=== PATIENT | female | born 1950 | race Caucasian/White ===

== ENCOUNTER 2020-05-26 13:05 | Emergency (ER) | payer MEDICARE, OTHER ==
[~2020-05-26] VITALS: Ht 157.5 cm; Wt 71.4 kg
[2020-05-26 13:15] VITALS: BP 176/86
[2020-05-26] MEDS ORDERED: HYDROcodone/APAP 7.5/325MG 1 TAB TABLET PO ONE (13:30)
[2020-05-26] MEDS ORDERED: MENT118G TP (14:01)
[2020-05-26] MEDS ORDERED: LIDO1ADH TP (14:01)
--- NOTE | 2020-05-26 14:01 | PHYS DOC ---
Past History Past Medical History: Diabetes, Hypertension, Hypothyroid Past Surgical History: Hysterectomy, Tonsillectomy, Other Additional Past Surgical Histo: MANDIBULAR SURGERY Alcohol Use: Rarely General Adult EDM: Chief Complaint: RIB PAIN HPI: HPI: 69-year-old female past medical history significant for diabetes, hypertension hypothyroidism, presents to the ED immediately after injury to her chest wall, complaints of left sided anterior rib pain that occurred just prior to arrival stating she feels as if something is moving. Patient states she works at a [employer] day[employer] when she tripped over a chair and fell forward, hitting her chest on a wooden shelf. Patient reports pain is worsened with any type of upper extremity movement (raising her arms), cough or twisting of her torso. Patient reports she is not on any anticoagulants. Did not her head or lose consciousness. Denies any alcohol or drug use. Patient reports she is physically active, has a certified athletic trainer and exercises for 1hr, 3x/wk. Declines any "pill" pain medications in the ED and asks if epsom salt baths are okay. Denies any preceding symptoms including dizziness, chest pain, lightheadedness or difficulties breathing. Review of Systems: Review of Systems: Constitutional: Denies fever or chills Eyes: Denies change in visual acuity HENT: Denies nasal congestion or sore throat Respiratory: Denies cough or hemoptysis Cardiovascular: Denies syncope or edema GI: Denies abdominal pain, nausea, vomiting, bloody stools or diarrhea : Denies dysuria Musculoskeletal: Denies back pain or joint pain Integument: Denies rash Neurologic: Denies headache, focal weakness or sensory changes or midline neck pain or neck stiffness Endocrine: Denies polyuria or polydipsia Lymphatic: Denies swollen glands Psychiatric: Denies depression or anxiety Heart Score: Risk Factors: Risk Factors: DM, Current or recent (<one month) smoker, HTN, HLP, family history of CAD, obesity. Risk Scores: Score 0 - 3: 2.5% MACE over next 6 weeks - Discharge Home Score 4 - 6: 20.3% MACE over next 6 weeks - Admit for Clinical Observation Score 7 - 10: 72.7% MACE over next 6 weeks - Early Invasive Strategies Current Medications: Current Meds: Current Medications Medications (Trade) Dose Ordered Sig/Dusty Start Time Stop Time Status Last Admin Dose Admin Acetaminophen/ Hydrocodone Bitart (Lortab 7.5/325) 1 tab 1X ONCE 05/26/20 13:30 05/26/20 13:31 DC Allergies: Allergies: Allergies Coded Allergies Type Severity Reaction Last Updated Verified No Known Drug Allergies 05/26/20 No Physical Exam: PE: Constitutional: Well developed, well nourished, no acute distress, non-toxic appearance. [] HENT: Normocephalic, atraumatic, bilateral external ears normal, Eyes: PERRLA, EOMI, conjunctiva normal, no discharge. [] Neck: Normal range of motion, no tenderness, supple, no stridor. [] Cardiovascular:Heart rate regular rhythm, no murmur [] Lungs & Thorax: Bilateral breath sounds clear to auscultation []+anterior thoracic left ttp - just under left breast, no bruising or palpable deformity, no crepitus Abdomen: Bowel sounds normal, soft, no tenderness, no masses, no pulsatile masses. [] Skin: Warm, dry, no erythema, no rash. [] Back: No tenderness, Extremities: No tenderness, no cyanosis, no clubbing, ROM intact, no edema. [] Neurologic: Alert and oriented X 3, normal motor function, normal sensory function, no focal deficits noted. [] Psychologic: Affect normal, judgement normal, mood normal. [] Current Patient Data: Vital Signs: Vital Signs Date Time Temp Pulse Resp B/P (MAP) Pulse Ox O2 Delivery O2 Flow Rate FiO2 05/26/20 13:15 98.1 77 20 176/86 (116) 97 Room Air EKG: EKG: [] Radiology/Procedures: Radiology/Procedures: []IMAGING REPORT Signed PATIENT: JOELLE LEDESMA ACCOUNT: [id number] : 1950 LOCATION: ER AGE: 69 SEX: F EXAM STATUS: REG ER ORD. PHYSICIAN: MARVIN NASSAR DO REASON: fall left anterior lower rib pain PROCEDURE: CT CHEST WO CONTRAST CT CHEST WO CONTRAST INDICATION: fall left anterior lower rib pain COMPARISON STUDY: None. TECHNIQUE: Unenhanced axial images were obtained through the lungs and upper abdomen. Coronal and sagittal multiplanar reconstructions were also obtained. PQRS compliance statement: One or more of the following individualized dose reduction techniques were utilized for this examination: 1. Automated exposure control 2. Adjustment of the mA and/or kV according to patient size 3. Use of iterative reconstruction technique FINDINGS: Lungs and Airways: No pulmonary mass or consolidation. Normal central airways. Pleura: The pleural spaces are normal. Heart and Mediastinum: The visualized thyroid gland is normal in size and attenuation. No axillary or supraclavicular lymphadenopathy. No mediastinal, hilar or retrocrural lymphadenopathy. Normal cardiac size. Coronary artery atherosclerotic disease. The great vessels of the thorax are normal. Abdomen: The visualized abdominal organs demonstrate no abnormality. Bones and Soft Tissues: Mildly displaced left anterolateral sixth rib fracture. Degenerative changes of the spine. IMPRESSION: Mildly displaced acute left anterolateral sixth rib fracture. No pneumothorax. Electronically signed by: Milli Edward MD (05/26/2020 2:07 PM) [id number] DICTATED AND SIGNED BY: MILLI EDWARD MD DATE: 05/26/20 1400 CC: KATHRINE REYNOSO MD; MARVIN NASSAR DO ~ Course & Med Decision Making: Course & Med Decision Making Pertinent Labs and Imaging studies reviewed. (See chart for details) Concern for blunt anterior left mid/lower chest wall ttp in a well appearing female with CT chest showing left anterior acute mildly displaced sixth rib fracture with no pneumothorax. Patient was educated on risk of pneumonia and was given incentive spirometer instructions (hourly while awake). Encouraged urgent outpatient follow-up with PMD-we did discuss outpatient pain management with primary care physician if she should change her mind regarding pill medications. Strict ED return precautions given for severe pain, difficulties breathing or increased work of breathing. Life-threatening processes were considered but are low suspicion at this time, given history and physical exam. Pt was educated on all prescription medications and adverse effects. All pat ient's questions were answered and pt was stable at time of discharge. Life/limb-threatening differential includes but is not limited to, intracranial hemorrhage, diffuse axonal injury, spinal cord syndrome, unstable cervical fracture or SCIWORA, fractures or joint dislocations, neurovascular injuries, organ injury or laceration, pneumothorax, pneumoperitoneum, pericardial tampona de, unstable pelvic fracture, compartment syndrome, flail chest or respiratory distress, burn injury or asphyxiation I spoken with the patient and her caregivers. I explained the patient's condition, diagnoses and treatment plan based on the information available to me at this time. I have answered the patient and her caregiver's questions and addressed any concerns. The patient and her caregivers have a good understanding of patient's diagnosis, condition and treatment plan as can be expected at this point. Vital signs have been stable. Patient's condition is stable and appropriate for discharge from the emergency department. Patient will pursue further outpatient evaluation with primary care physician or other designated or consulting physician as outlined in the discharge instructions. The patient and/or caregivers are agreeable to this plan of care and follow-up instructions have been explained in detail. The patient and/or caregivers have received these instructions in written form and have expressed an understanding of the discharge instructions. The patient and/or caregivers are aware that any significant change of condition or worsening of symptoms should prompt immediate return to this or the closest emergency department or call to 911. Omkar Disclaimer: Omkar Disclaimer: This electronic medical record was generated, in whole or in part, using a voice recognition dictation system. Departure Departure: Impression: Primary Impression: Left rib fracture Additional Impressions: Chest wall injury Contusion of left chest wall Disposition: 01 HOME/RESIDENCE PRIOR TO ADM Condition: STABLE Referrals: KATHRINE REYNOSO MD (PCP) Patient Instructions: Chest Contusion, RICE - Routine Care for Injuries, Rib Fracture Additional Instructions: EMERGENCY DEPARTMENT GENERAL DISCHARGE INSTRUCTIONS Thank you for coming to [facility] (ED) today and trusting us with you care. We trust that you had a positivie experience in our Emergency Department. If you wish to speak to the department management, you may call the director at [phone]. YOUR FOLLOW UP INSTRUCTIONS ARE FOLLOWS: 1. Do you have a private Doctor? If you do not have a private doctor, please ask for a resource list of physicians or clinics that may be able to assist you with follo w up care. 2. The Emergency Physician has interpreted your x-rays. The X-Ray specialist will also review them. If there is a change in the findings, you will be notified in 48 hours when at all possible. 3. A lab test or culture has been done, your results will be reviewed and you will be notified if you need a change in treatment. ADDITIONAL INSTRUCTIONS AND INFORMATION: 1. Your care today has been supervised by a physician who is specially trained in emergency care. Many problems require more than one evaluation for a complete diagnosis and treatment. We recommend that you schedule your follow up appointment as rec ommended to ensure complete treatment of you illness or injury. If you are unable to obtain follow up care and continue to have a problem, or if your condition worsens, we recommend that you return to the ED. 2. We are not able to safely determine your condition over the phone nor are we able to give sound medical advice over the phone. For these safety reasons, if you call for medical advice we will ask you to come to the ED for further evaluation. 3. If you have any questions regarding these discharge instructions please call the ED at [phone]. SAFETY INFORMATION: In the interest of safety, wellness, and injury prevention; we encourage you to wear your sealbelt, if you smoke; quite smoking, and we encourage family to use a protective helmet for bicycling and other sporting events that present an increased risk for head injury. IF YOUR SYMPTOMS WORSEN OR NEW SYMPTOMS DEVELOP, OR YOU HAVE CONCERNS ABOUT YOUR CONDITION; OR IF YOUR CONDITION WORSENS WHILE YOU ARE WAITING FOR YOUR FOLLOW UP APPOINTMENT; EITHER CONTACT YOUR PRIMARY CARE DOCTOR, THE PHYSICIAN WHOSE NAME AND NUMBER YOU WERE GIVEN, OR RETURN TO THE ED IMMEDIATELY. Scripts Hydrocodone Bit/Acetaminophen (NORCO 5-325 TABLET) 1 Each Tablet 1 TAB PO PRN Q6HRS PRN for PAIN for 3 Days, #12 TAB 0 Refills Prov: MARVIN NASSAR DO 05/26/20 Lidocaine/Menthol (LIDOPATCH) 1 Each Adh..patch 1 KENDRA TP DAILY for pain for 4 Days, #4 EACH 0 Refills Prov: MARVIN NASSAR DO 05/26/20 Menthol (BIOFREEZE) 118 Ml Gel..ml. 1 KENDRA TP QID for pain for 7 Days, #118 ML 0 Refills Prov: MARVIN NASSAR DO 05/26/20 MARVIN NASSAR DO May 26, 2020 14:01
--- NOTE | 2020-05-26 14:10 | RAD ---
CT CHEST WO CONTRAST INDICATION: fall left anterior lower rib pain COMPARISON STUDY: None. TECHNIQUE: Unenhanced axial images were obtained through the lungs and upper abdomen. Coronal and sagittal multiplanar reconstructions were also obtained. PQRS compliance statement: One or more of the following individualized dose reduction techniques were utilized for this examination: 1. Automated exposure control 2. Adjustment of the mA and/or kV according to patient size 3. Use of iterative reconstruction technique FINDINGS: Lungs and Airways: No pulmonary mass or consolidation. Normal central airways. Pleura: The pleural spaces are normal. Heart and Mediastinum: The visualized thyroid gland is normal in size and attenuation. No axillary or supraclavicular lymphadenopathy. No mediastinal, hilar or retrocrural lymphadenopathy. Normal cardiac size. Coronary artery atherosclerotic disease. The great vessels of the thorax are normal. Abdomen: The visualized abdominal organs demonstrate no abnormality. Bones and Soft Tissues: Mildly displaced left anterolateral sixth rib fracture. Degenerative changes of the spine. IMPRESSION: Mildly displaced acute left anterolateral sixth rib fracture. No pneumothorax. Electronically signed by: Dharmesh Edward MD (05/26/2020 2:07 PM) [id number]
[2020-05-26] MEDS ORDERED: LIDOCAINE (700MG/PATCH) PATCH. TD SCH (14:15)
[2020-05-26] MEDS ORDERED: HYDR-3165 PO (14:35)
[2020-05-26] MEDS ORDERED: PATCH REMOVAL. MC SCH (21:00)
== END 2020-05-26 14:48 | disposition home or self-care (01) ==
LOC: ER 13:05
DX: S22.32XA Fracture of one rib, left side, initial encounter for closed fracture (principal); M54.2 Cervicalgia; E11.9 Type 2 diabetes mellitus without complications; I10 Essential (primary) hypertension; E03.9 Hypothyroidism, unspecified; W18.09XA Striking against other object with subsequent fall, initial encounter; Y93.89 Activity, other specified; Y92.89 Other specified places as the place of occurrence of the external cause; Y99.8 Other external cause status
CPT/HCPCS: 71250; 99284; G0238